=== PATIENT | female | born 1985 | race Caucasian/White ===

== ENCOUNTER 2019-08-09 16:47 | Emergency (ER) | payer MEDICAID, SELFPAY ==
[2019-08-09 16:52] VITALS: BP 115/98; PULSE 88; RESP 20; TEMP 36.9; O2SAT 100
[2019-08-09 17:08] LABS: Basophils Percent Auto 0.5 % (0.2-1.2); Eosinophils Absolute Auto 0.1 K/mm3 (0-0.3); Eosinophils Percent Auto 1.4 % (0-4.4); Hematocrit 38.9 % (37.0-47.0); Hemoglobin 13.2 g/dL (12.0-15.0); Immature Granulocyte Absolute 0.02 K/mm3 (0.00-0.031); Immature Granulocyte Percent A 0.3 % (0-0.5); Lymphocytes Percent Auto 31.8 % (18.3-44.2); Mean Corpuscular HGB Conc 33.9 g/dl (32-36); Mean Corpuscular Hemoglobin 30.3 pg (26-34); Mean Corpuscular Volume 89.4 fl (80-100); Mean Platelet Volume 11.5 fl (7.4-10.4); Monocytes Absolute Auto 0.5 K/mm3 (0.1-0.6); Monocytes Percent Auto 7.6 % (2.6-8.5); Neutrophils Absolute Auto 3.7 K/mm3 (1.3-6.7); Neutrophils Percent Auto 58.4 % (45.5-73.1); Platelet Count Result 209 k/mm3 (150-375); Red Blood Count 4.35 M/mm3 (4.2-5.4); Red Cell Distribution Width 12.4 % (11.5-14.5); White Blood Count 6.3 K/mm3 (4.5-10.0)
[2019-08-09 17:20] LABS: Blood Urea Nitrogen 15 mg/dL (7-17); Calcium 9.3 mg/dL (8.4-10.2); Carbon Dioxide 21 mmol/L (22-30); Chloride 99 mmol/L (98-107); Estimated CRCL calculation 129 ml/min; Estimated Glomerular Filt Rate > 60; Glucose 116 mg/dL (65-105); Potassium 3.8 mmol/L (3.4-5.0); Sodium 134 mmol/L (137-145)
== END 2019-08-09 20:45 | disposition left against medical advice (07) ==
LOC: ANHED 20:55
PROVIDERS: Emergency Medicine
DX: R10.9 Unspecified abdominal pain (principal)
CPT/HCPCS: 36415; 80048; 85025; 99199

== ENCOUNTER 2019-09-13 06:01 | Emergency (ER) | payer OTHER, SELFPAY ==
[2019-09-13] VITALS (9 sets, daily range): BP systolic 108–133; BP diastolic 54–79; PULSE 82–100; RESP 16–29; TEMP 37.2; O2SAT 100
--- NOTE | ~2019-09-13 | XR_ITS ---
EXAMINATION: XR chest 2V DATE: 09/13/2019 07:51 INDICATION: Shortness of breath. Cough. TECHNIQUE: Frontal and lateral views of the chest were obtained. COMPARISON: Chest radiograph 09/09/2010 FINDINGS: The chest demonstrates clear lungs without pneumonia, pleural effusion, or pneumothorax. Th e heart size is normal. IMPRESSION: 1. No acute cardiopulmonary disease. Reviewed, dictated and finalized at location A. RNED GOODS INSPECTOR
--- NOTE | 2019-09-13 07:14 | ED.URI ---
HPI - URI/Sore Throat General Chief Complaint: Upper Respiratory Infection Stated Complaint: BREATHING ISSUES, HOARSE Time Seen by Provider: 09/13/19 07:02 Source: patient Mode of arrival: ambulatory Limitations: no limitations History of Present Illness HPI Narrative: Patient is a 34-year-old female who presents to the emergency department with complaint of cough, hoarse voice, and shortness of breath. Patient has been ill for the past 2 weeks. Patient has a history of asthma and is a smoker. She reports a nonproductive cough. Patient has been seen in urgent care twice and been using inhaler and had been prescribed steroids. Patient recently completed her course of 60 mg prednisone for 6 days. Patient reports shortness of breath. She denies any fever. MD elicited complaint: cough Onset (ago): week(s) (2) Consistency: constant Associated symptoms: voice changes (hoarse) Treatments prior to arrival: other (steroids, inhaler) Related Data Allergies Allergy/AdvReac Type Severity Reaction Status Date / Time No Known Allergies Allergy Verified 09/13/19 06:29 Review of Systems Review of Systems: All systems reviewed & are unremarkable except as noted in HPI and below Constitutional: Constitutional: Denies fever(s) ENT: Reports change in voice and Reports sore throat Respiratory: Respiratory: Reports cough, Reports dyspnea and Reports wheezing PMFSH Past Medical History Medical History (Updated 09/13/19 @ 10:09 by Pamela Ellison MD) Asthma Social History Social History (Updated 09/13/19 @ 07:18 by Pamela Ellison MD) Smoking packs per day: 1 Smoking cigarettes per day: 20.0 Smoking status: Current every day smoker Gender identity (if verbalized by the patient): Female Exam Const: General: cooperative, no acute distress and alert Nutritional Appearance: well nourished Orientation/consciousness: patient oriented x3 Limitations: no limitations HENMT: Mouth: Yes lip normal and Yes moist mucous membranes Resp: Effort & Inspection: normal respiratory effort and Actively coughing dry Auscultation: wheezes scattered wheezes and diminished lung sounds diffuse Cardio: Rate: regular rate Rhythm: regular rhythm GI: GI Palp: Yes Soft to palpation and No Tenderness to palpation present (GI) Auscultation: normal bowel sounds Skin: General skin exam: normal color Neuro: General: patient oriented x3 Cognition (Neuro): normal cognition Speech: normal speech Extrem: General: normal to inspection, full ROM and no clubbing, cyanosis or edema Psych: Mental Status: mental status grossly normal Affect: normal affect Attitude: cooperative Course Course Emergency Course: Patient feeling better after hour-long continuous nebulizer treatment. Clinical picture consistent with viral bronchitis. Patient just finished steroid burst. Patient advised on ongoing use of bronchodilators and follow-up with primary care for further evaluation. Emphasized importance of smoking cessation. Vital Signs Vital signs: Vital Signs Temperature 99.0 F 09/13/19 06:07 Pulse Rate 95 09/13/19 06:07 Respiratory Rate 18 09/13/19 06:07 Blood Pressure 121/79 09/13/19 06:07 Pulse Oximetry 100 09/13/19 06:07 Temperature 99.0 F 09/13/19 06:07 Pulse Rate 90 09/13/19 08:56 Respiratory Rate 20 09/13/19 08:56 Blood Pressure 133/73 09/13/19 07:23 Pulse Oximetry 100 09/13/19 07:25 MDM - URI/Sore Throat Differential Diagnosis Differential diagnosis: Likely viral infection, bronchitis, influenza and other (Pneumonia) Lab Data Labs: Influenza A Screen Negative Reference Range: Negative Influenza B Screen Negative Reference Range: Negative Strep Screen Presumptive Negative *(Reference Range: Negative)* Imaging Data Radiologist's impression: ITS Impressions Chest X-Ray 09/13/19 08:01 IMPRESSION: 1. No acute cardiopulm
[2019-09-13] MEDS: IPRATROPIUM BR 0.02% INH SOLN 0.5 MG/2.5 ML VIAL 1.5 MG INHALATION (07:37)
[2019-09-13] MEDS: ALBUTEROL SULFATE NEB 2.5 MG/0.5 ML INH 15 MG INHALATION (07:37)
== END 2019-09-13 10:19 | disposition home or self-care (01) ==
PROVIDERS: Emergency Provider Emergency Medicine
DX: J45.909 Unspecified asthma, uncomplicated (principal); F17.210 Nicotine dependence, cigarettes, uncomplicated
CPT/HCPCS: 71046; 87081; 87804; 87880; 94640; 99283

== ENCOUNTER 2021-07-27 11:50 | Emergency (ER) | payer OTHER, SELFPAY ==
[2021-07-27 12:20] VITALS: BP 122/67; PULSE 88; RESP 18; TEMP 36.4; O2SAT 99
[2021-07-27 14:30] VITALS: BP 113/71; PULSE 78; PULSE 93; RESP 20; O2SAT 98
--- NOTE | 2021-07-27 15:16 | ECG_ITS ---
Measurements Intervals [place] Rate: 87 P: 66 CT: 147 QRS: 60 QRSD: 93 T: 66 QT: 365 QTc: 439 Interpretive Statements SINUS RHYTHM WITH SINUS ARRHYTHMIA NORMAL ECG Electronically Signed On 07-27-2021 15:51:32 [employer] by Bernard Ibarra D.O.
[2021-07-27 15:56] VITALS: BP 112/71; PULSE 97; RESP 19; O2SAT 100
--- NOTE | 2021-07-27 15:58 | ED.GENADULT ---
HPI - General Adult General Chief complaint: Seizure Stated complaint: seizures x 2 last night Time Seen by Provider: 07/27/21 15:15 History of Present Illness HPI narrative: Patient is a 36-year-old female who comes into the ED today with concerns of a possible seizure. She is accompanied by a friend who was with her when this happened. The patient says that she was just sitting on the love seat and she suddenly lost consciousness. The friend says that he held the patient in a sitting position to keep her from falling and hurting herself. There was no overt body convulsions, he says that her body felt tense . This lasted about 2 to 3 minutes and then resolved, the patient rested about 10 minutes and then had another similar episode where she was unconscious without any overt seizure-like activity. No chest pain or shortness of breath. Patient says that she felt fatigued for about an hour after these events and then was back to her normal self. Believes that she did bite her tongue. No bowel or bladder incontinence. Currently she says she feels very anxious. She is on Wellbutrin for her anxiety. She also takes trazodone every night to help her sleep. No other medications. No previous history of similar symptoms. Reports that she drinks alcohol every day. About 5 or 6 shots a day. Last drink yesterday morning. Denies any drug use. Denies any chance of . Says that her current feelings of anxiety are consistent with her previous panic attacks. She personally does not feel like she is going through alcohol withdrawals. Related Data Allergies Allergy/AdvReac Type Severity Reaction Status Date / Time No Known Allergies Allergy Verified 07/27/21 14:32 Review of Systems Constitutional: Constitutional: Reports as per HPI, Denies fever(s), Denies night sweats and Denies weakness Cardiovascular: Cardiovascular: Denies chest pain, Denies edema, Denies leg edema, Denies dyspnea and Denies orthopnea Respiratory: Respiratory: Denies cough and Denies dyspnea Gastrointestinal: Gastrointestinal: Denies abdominal pain, Denies constipation, Denies diarrhea, Denies nausea and Denies vomiting Musculoskeletal: Musculoskeletal: Denies abnormal gait, Denies back pain, Denies numbness and Denies tingling Neurologic: Reports as per HPI, Denies Abnormal speech present, Denies abnormal gait, Denies numbness, Denies tingling and Denies weakness Comments: See HPI. Psychiatric: Psychiatric: Reports as per HPI, Denies homicidal ideation and Denies suicidal ideation [facility] Past Medical History Medical History (Updated 07/27/21 @ 17:37 by Ammon Boone PA-C) Asthma Social History Social History (Updated 09/13/19 @ 07:18 by Pamela Ellison MD) Smoking packs per day: 1 Smoking cigarettes per day: 20.0 Smoking status: Current every day smoker Gender identity (if verbalized by the patient): Female Exam Const: General: cooperative, healthy appearing, comfortable, no acute distress, well developed, alert, awake and Physically active Orientation/consciousness: patient oriented x3 HENMT: Head: normal to inspection, normocephalic and atraumatic Ears: external ears normal General nose exam: Normal external nose present Mouth: Yes other (I cannot appreciate any bite rogers on her tongue) Eyes: Pupils: Equal, round and reactive pupils present EOM: EOMs intact bilaterally Neck: Neck: normal visual inspection Chest: Chest palpation & inspection: normal inspection of the chest and no tenderness Resp: Effort & Inspection: normal respiratory effort and able to speak in complete sentences Auscultation: clear to auscultation bilaterally Cardio: Rate: regular rate Rhythm: regular rhythm GI: Inspection: normal to inspection GI Palp: No abdominal tenderness : General: Yes no CVA tenderness Back/Spine/Pelvis: Back: no CVA tenderness Skin: General skin exam: normal color and no rashes or lesions noted Lesi
[2021-07-27 16:01] LABS: Basophils Percent Auto 0.4 % (0.2-1.2); Eosinophils Percent Auto 0.1 % (0-4.4); Hematocrit 38.7 % (37.0-47.0); Hemoglobin 13.4 g/dL (12.0-15.0); Immature Granulocyte Absolute 0.04 K/mm3 (0.00-0.031); Immature Granulocyte Percent A 0.4 % (0-0.5); Lymphocytes Absolute Auto 1.09 K/mm3 (0.9-3.2); Mean Corpuscular HGB Conc 34.6 g/dl (32-36); Mean Corpuscular Hemoglobin 31.8 pg (26-34); Mean Corpuscular Volume 91.9 fl (80-100); Mean Platelet Volume 10.6 fl (7.4-10.4); Monocytes Absolute Auto 0.9 K/mm3 (0.1-0.6); Monocytes Percent Auto 8.6 % (2.6-8.5); Neutrophils Absolute Auto 8.8 K/mm3 (1.3-6.7); Neutrophils Percent Auto 80.5 % (45.5-73.1); Platelet Count Result 233 k/mm3 (150-375); Red Blood Count 4.21 M/mm3 (4.2-5.4); Red Cell Distribution Width 13.1 % (11.5-14.5); White Blood Count 10.9 K/mm3 (4.5-10.0)
[2021-07-27 16:16] LABS: Alanine Aminotransferase 18 U/L (4-35); Albumin Level 4.3 g/dL (3.5-5.1); Alkaline Phosphatase 88 U/L (38-126); Anion Gap 12 mmol/L (8-16); Aspartate Amino Transferase 27 U/L (14-36); Bilirubin,Total 1.5 mg/dL (0.2-1.3); Blood Urea Nitrogen 10 mg/dL (7-17); Calcium 9.4 mg/dL (8.4-10.2); Carbon Dioxide 23 mmol/L (22-30); Chloride 102 mmol/L (98-107); Estimated CRCL calculation 116 ml/min; Estimated Glomerular Filt Rate > 60; Glucose 101 mg/dL (65-110); Potassium 3.3 mmol/L (3.4-5.0); Sodium 137 mmol/L (137-145)
[2021-07-27 16:26] LABS: Troponin I < 0.012 ng/mL (0.000-0.034)
[2021-07-27 16:46] LABS: Barbiturate Screen Urine Negative (Negative); Benzodiazepines Screen Urine Negative (Negative)
[2021-07-27] MEDS: LORazepam INJ (*CRX) 2 MG/ML VIAL 0.5 MG IV PUSH (16:53)
[2021-07-27 17:36] LABS: Amphetamine Screen Urine Positive (Negative); Cannabinoid Screen Urine Negative (Negative); Cocaine Screen Urine Negative (Negative); Methadone Screen Urine Negative (Negative); Opiate Screen Urine Negative (Negative); Phencyclidine Screen Urine Negative (Negative)
[2021-07-27 18:05] VITALS: BP 135/80; PULSE 92; RESP 14; O2SAT 95
[2021-07-27] MEDS: POTASSIUM CHLORIDE 20 MEQ PACKET (FOR LIQUID) PO (18:10)
[2021-07-27 18:31] LABS: Hepatitis B Surface Antigen Negative (Negative)
[2021-07-27 18:36] LABS: HAV RESULT Negative (Negative); Hepatitis B Core IgM Result Negative (Negative)
[2021-07-27 18:53] LABS: Hepatitis C Virus Antibody Reactive (Negative)
[2021-08-01 20:24] LABS: Hepatitis C RNA, Quant PCR <15 IU/mL
== END 2021-07-27 18:10 | disposition home or self-care (01) ==
PROVIDERS: Physician Assistant Medical; Emergency Provider Family Medicine
DX: R55 Syncope and collapse (principal); F41.9 Anxiety disorder, unspecified; J45.909 Unspecified asthma, uncomplicated; F17.210 Nicotine dependence, cigarettes, uncomplicated
CPT/HCPCS: 36415; 80053; 80074; 80307; 81025; 84484; 85025; 87081; 87147; 87522; 87880; 93005; 96374; 99284; A9270; J2060